=== PATIENT | male | born 1955 | race Caucasian/White ===

== ENCOUNTER 2017-10-16 01:51 | Emergency (ER) | payer BC ==
[2017-10-16 02:11] VITALS: BP 157/83
[2017-10-16] MEDS: GI Cocktail Oral Solution 30 ML PO ONE ×2 (02:16→03:06)
[2017-10-16] MEDS ORDERED: Ondansetron 4 MG Tab.DIS PO ONE (02:34)
[2017-10-16 02:42] LABS: CHLORIDE,CL 105 mmol/L (98-107); SODIUM,NA 141 mmol/L (136-145)
--- NOTE | 2017-10-16 02:43 | EDM.PDOC ---
ED HPI GENERAL MEDICAL PROBLEM - General Chief Complaint: General Stated Complaint: Indigestion Time Seen by Provider: 10/16/17 02:32 Source of Information: Reports: Patient History Limitations: Reports: No Limitations - History of Present Illness INITIAL COMMENTS - FREE TEXT/NARRATIVE: Patient drove self to ER after experiencing indigestion-like symptoms for the last 6-7 hours ( started around 7pm). Patient has had similar symptoms in past , most recently 2 weeks ago. Says this episode is worse in intensity. Point to LUQ of abdomen as site of pain. No chest pain. Pain does not radiate. Improves when he sits up straight. Worsens when lying down or laying forward. Was feeling sweaty at height of the pain. Vomiting makes it feel better significantly. Emesis is yellowish in color per nursing. No SOB/coughing/respiratory changes. No fevers/HEENT changes. Denies bowel changes/ changes. Had ribs and water for dinner History of CAD, had stent placed sometime in "the 80s", does not remember how old he was. Also insulin dependent diabetes. Abdominal Pain Score (Numeric/FACES): 7 - Related Data Allergies Allergy/AdvReac Type Severity Reaction Status Date / Time aspirin Allergy Bleeding Verified 10/16/17 01:53 Penicillins Allergy unknown Verified 10/16/17 01:53 Home Meds: Home Meds Insulin Glarg,Human.Rec.Analog [LantUS Solostar] 26 units SUBCUT BEDTIME [History] Lisinopril 0.25 tab PO DAILY 02/20/15 [History] Metoprolol Tartrate [Lopressor] 1 tab PO DAILY 02/20/15 [History] metFORMIN [Glucophage] 1,000 mg PO BID 02/20/15 [History] atorvaSTATin [Lipitor] 10 mg PO BEDTIME 02/21/15 [History] Ezetimibe 10 mg PO DAILY 10/16/17 [History] Furosemide [Lasix] 20 mg PO DAILY 10/16/17 [History] Saxagliptin HCl [Onglyza] 5 mg PO DAILY 10/16/17 [History] Past Medical History Other Musculoskeletal History: Right knee pain, right upper thigh mass - Past Surgical History Other Cardiovascular Surgeries/Procedures: Heart attack with stent placement Social & Family History - Tobacco Use Smoking Status *Q: Never Smoker Second Hand Smoke Exposure: No - Caffeine Use Caffeine Use: Reports: None - Recreational Drug Use Recreational Drug Use: No ED ROS GENERAL - Review of Systems Review Of Systems: See Below Constitutional: Reports: Diaphoresis, Decreased Appetite. Denies: Fever, Chills , Weakness, Fatigue, Weight Loss, Weight Gain HEENT: Reports: No Symptoms Respiratory: Reports: No Symptoms Cardiovascular: Reports: No Symptoms GI/Abdominal: Reports: Abdominal Pain, Decreased Appetite, Nausea, Vomiting. Denies: Black Stool, Bloody Stool, Constipation, Diarrhea, Difficulty Swallowing , Distension, Hematochezia : Reports: No Symptoms Musculoskeletal: Reports: No Symptoms Skin: Reports: No Symptoms Neurological: Reports: No Symptoms Psychiatric: Reports: No Symptoms ED EXAM, GENERAL - Physical Exam Exam: See Below Exam Limited By: No Limitations General Appearance: Alert, WD/WN, Anxious Eye Exam: Bilateral Eye: EOMI, PERRL Ears: Normal External Exam Nose: No: Nasal Deformity, Nasal Swelling, Nasal Drainage Throat/Mouth: Normal Inspection, Normal Lips, Normal Voice, No Airway Compromise Head: Atraumatic, Normocephalic Neck: Normal Inspection, Supple, Non-Tender, Full Range of Motion Respiratory/Chest: No Respiratory Distress, Lungs Clear, Normal Breath Sounds, No Accessory Muscle Use, Chest Non-Tender Cardiovascular: Normal Peripheral Pulses, Regular Rate, Rhythm, No Murmur Peripheral Pulses: 2+: Radial (L), Radial (R) GI/Abdominal: Normal Bowel Sounds, Soft, No Distention, Tender (mild tenderness with palpation left upper quadrant of abdomen). No: Guarding, Rigid, Rebound (Male) Exam: Deferred Rectal (Males) Exam: Deferred Back Exam: No: CVA Tenderness (L), CVA Tenderness (R) Neurological: Alert, Oriented, CN II-XII Intact, Normal Cognition, Normal Gait, No Motor/Sensory Deficits Psychiatric: Anxious Skin Exam: Warm, Dry, Intact, Normal Color EKG INTERPRETATION EKG Date: 10/16/17 Time: 02:08 Rhythm: NSR Rate (Beats/Min): 75 Campbell: LAD-Left Campbell Deviation P-Wave: Present QRS: Other (low voltage) ST-T: Normal (No obvious acute changes suggestive of ischemia) QT: Normal Comparison: NA - No Prior EKG Course - Vital Signs Last Recorded V/S: Last Vital Signs Temp 36.7 C 10/16/17 02:10 Pulse 77 10/16/17 02:10 Resp 18 10/16/17 02:10 BP 157/83 H 10/16/17 02:10 Pulse Ox 98 10/16/17 02:10 - Orders/Labs/Meds Orders: Active Orders 24 hr Category Date Time Status EKG Documentation Completion [RC] ASDIRECTED Care 10/16/17 02:02 Active Abdomen Series w Chest 1V [CR] Stat Exams 10/16/17 02:34 Taken Saline Lock Insert [OM.PC] Routine Oth 10/16/17 02:46 Ordered Labs: Laboratory Tests 10/16/17 10/16/17 10/16/17 Range/Units 02:14 02:14 02:14 WBC 10.3 H (4.0-10.2) K/uL RBC 4.53 (4.33-5.41) M/uL Hgb 13.5 (13.1-16.8) g/dL Hct 40.4 (39.0-49.0) % MCV 89.2 (84.0-98.0) fL MCH 29.8 (28.2-33.3) pg MCHC 33.4 (31.7-36.0) g/dL RDW 13.5 (11.2-14.1) % Plt Count 183 (150-350) K/uL Neut % (Auto) 88.9 H (45.0-80.0) % Lymph % (Auto) 5.9 L (10.0-50.0) % [place] % (Auto) 4.9 (2.0-14.0) % Eos % (Auto) 0.1 (0.0-5.0) % Baso % (Auto) 0.2 (0.0-2.0) % Neut # (Auto) 9.19 H (1.40-7.00) K/uL Lymph # (Auto) 0.61 (0.50-3.50) K/uL [place] # (Auto) 0.51 (0.00-1.00) K/uL Eos # (Auto) 0.01 (0.00-0.50) K/uL Baso # (Auto) 0.02 (0.00-0.20) K/uL Sodium 141 (136-145) mmol/L Potassium 3.9 (3.5-5.1) mmol/L Chloride 105 (98-107) mmol/L Carbon Dioxide 26.4 (21.0-32.0) mmol/L BUN 20 H (7-18) mg/dL Creatinine 1.14 (0.51-1.17) mg/dL Est Cr Clr Drug Dosing 54.81 mL/min Estimated GFR (MDRD) > 60 mL/min Glucose 196 H (74-106) mg/dL Calcium 9.1 (8.5-10.1) mg/dL Total Bilirubin 0.7 (0.2-1.0) mg/dL AST 59 H (15-37) U/L ALT 74 (12-78) U/L Alkaline Phosphatase 95 (46-116) IU/L CK-MB (CK-2) 2.30 (0.00-3.60) ng/mL Troponin I 0.000 (0.000-0.056) ng/mL Total Protein 7.3 (6.4-8.2) g/dL Albumin 3.8 (3.4-5.0) g/dL Amylase 50 (25-115) U/L Lipase 155 (73-393) U/L Meds: Medications Discontinued Medications Generic Name Dose Route Start Last Admin Trade Name Doeq PRN Reason Stop Dose Admin Al Hydroxide/Mg Hydroxide 30 ml 10/16/17 02:02 10/16/17 03:06 Gi Cocktail PO 10/16/17 02:03 Not Given ONETIME ONE Al Hydroxide/Mg Hydroxide Confirm 10/16/17 03:02 10/16/17 03:06 Gi Cocktail Administered 10/16/17 03:03 30 ml Dose Administration 30 ml .ROUTE .STK-MED ONE Famotidine 20 mg 10/16/17 03:14 10/16/17 03:19 Pepcid PO 10/16/17 03:15 20 mg ONETIME ONE Administration Ondansetron HCl 4 mg 10/16/17 02:34 10/16/17 02:39 Zofran Odt PO 10/16/17 02:35 4 mg ONETIME ONE Administration Pantoprazole Sodium 40 mg 10/16/17 02:46 10/16/17 03:05 Protonix Iv IVPUSH 10/16/17 02:47 40 mg ONETIME ONE Administration Sodium Chloride 10 ml 10/16/17 02:46 Saline Flush FLUSH ASDIRECTED PRN Keep Vein Open - Radiology Interpretation Free Text/Narrative:: Hiatal hernia noted on chest film. Scoliosis. No infiltrate identified. Moderate stool noted in abdomen. Radiology noted 1.2cm calcific radiopacity projecting left lateral to L3-4 intervertebral disc space. Could represent a ureteral calculus. May need retroperitoneal US to formally rule out hydronephrosis secondary to calculus if present. - Re-Assessments/Exams Free Text/Narrative Re-Assessment/Exam: 10/16/17 03:48 Patient unable to drink first GI cocktail as it caused emesis. Zofran given and allowed to have time to take effect. Second attempt at GI cocktail made, Pepcid given. Patient allowed to rest and be observed. Suspect GI cause to patient's complaint. Has large hiatal hernia as well as excess intraabdominal fat. Spent significant amount of time discussing dietary triggers of GERD/stomach upset. Recommend avoiding processed foods as well as foods often linked to GERD. As this involves cutting down on sugary/carb containing foods, patient was warned to monitor blood sugars closely as insulin needs should fall if he is compliant with dietary changes. Recommended to follow up with [facility]. May need new stress test as it has been a number of years since the previous test. Stu's symptoms do not appear to be cardiac in nature however at this time. Troponin and CKMB negative. No acute changes on EKG. No chest pain. [facility] will also need to be aware of dietary changes should patient follow through on this and assist him in adjusting insulin needs. He is to also cut out his diet sodas. Free Text/Narrative Re-Assessment/Exam: Patient was feeling much better at time of discharge. Pain improved to a "2". Requested to go home. Departure - Departure Time of Disposition: 04:00 Disposition: Home, Self-Care 01 Condition: Good Clinical Impression: Hiatal hernia, Abdominal pain, left upper quadrant - Discharge Information Instructions: Hiatal Hernia, Gastroesophageal Reflux Disease, Adult, Easy-to- Read Referrals: Albertina Collier NP [Primary Care Provider] - Forms: ED Department Discharge Additional Instructions: Highly recommend dietary changes as discussed. Follow up with [facility]. They will need to help you decrease your insulin requirements if you are following the recommended dietary changes. If you cut your processed food and carb intake without changing insulin dosage, then you can experience low blood sugar which can be dangerous if it gets too low. You can pear picker Zantac or Pepcid at the store and use it as the package directs to help avoid heartburn for now while you make the diet transition. Follow up otherwise as needed if you have problems/worsening issues. - My Orders Last 24 Hours: My Active Orders 10/16/17 02:02 EKG Documentation Completion [RC] ASDIRECTED 10/16/17 02:34 Abdomen Series w Chest 1V [CR] Stat 10/16/17 02:46 Saline Lock Insert [OM.PC] Routine - Assessment/Plan Last 24 Hours: My Active Orders 10/16/17 02:02 EKG Documentation Completion [RC] ASDIRECTED 10/16/17 02:34 Abdomen Series w Chest 1V [CR] Stat 10/16/17 02:46 Saline Lock Insert [OM.PC] Routine
[2017-10-16] MEDS ORDERED: Sodium Chloride 0.9% 10 ML Syringe FLUSH PRN (02:46)
[2017-10-16] MEDS ORDERED: Pantoprazole 40 MG Vial IVPUSH ONE (02:46)
[2017-10-16] MEDS ORDERED: GI Cocktail Oral Solution 30 ML ONE (03:02)
[2017-10-16] MEDS ORDERED: Famotidine 20 MG Tab PO ONE (03:14)
== END 2017-10-16 04:15 | disposition home or self-care (01) ==
LOC: LL.ED 01:51
DX: K44.9 Diaphragmatic hernia without obstruction or gangrene (principal); Z88.6 Allergy status to analgesic agent; Z88.0 Allergy status to penicillin; Z79.4 Long term (current) use of insulin; Z79.899 Other long term (current) drug therapy
CPT/HCPCS: 36415; 74022; 80053; 82150; 82553; 83690; 84484; 85025; 93005; 99284; A9270; C9113

== ENCOUNTER 2017-10-19 18:23 | Emergency (ER) | payer BC ==
[2017-10-19] MEDS ORDERED: Pantoprazole 40 MG Vial IVPUSH ONE (18:45)
[2017-10-19] MEDS ORDERED: Famotidine 20 MG/2 ML SDV IVPUSH ONE (18:45)
[2017-10-19] MEDS ORDERED: Ondansetron 4 MG/2 ML SDV IVPUSH ONE ×2 (18:45→19:56)
[2017-10-19] MEDS ORDERED: Lactated Ringers 1,000 ML IV ONE (18:45)
--- NOTE | 2017-10-19 18:45 | EDM.PDOC ---
ED HPI GENERAL MEDICAL PROBLEM - General Chief Complaint: General Stated Complaint: LLQ ABDOMINAL PAIN Time Seen by Provider: 10/19/17 18:40 Source of Information: Reports: Patient, Old Records ([facility] chart/EMR) History Limitations: Reports: No Limitations - History of Present Illness INITIAL COMMENTS - FREE TEXT/NARRATIVE: The patient drove himself to the emergency room via private automobile for evaluation of progressive recurrent left lower quadrant abdominal cramping associated with nausea and 2 episodes of emesis earlier today. Symptoms began at about 20:00 hours on 10/15 with emergency room evaluation in this facility on 10/16 with hiatal hernia and possible left-sided urolithiasis diagnosed at that time. He does state that his symptoms during the last couple of days have not been similar to his previous right-sided urolithiasis with no current colic type symptoms, gross hematuria, or other UTI symptoms. He did have a good normal bowel movement at about 13:00 hours today with a small bowel movement at 15:00 hours. He denies any anorexia, although he has not eaten very much today. Symptoms have been refractory to OTC Pepcid therapy. No recent history of other abdominal pain, heartburn, diarrhea, melena, gross hematochezia, or any food intolerance, including fatty foods, etc.. The patient denies any chest pain/ pressure, heart flutter, dizziness, orthostasis, orthopnea, diaphoresis, paresthesias, recent decreased exercise tolerance, or any other anginal-type symptoms. The patient also denies any recent fever, cough, wheezing, dyspnea, etc.. Onset: Gradual Onset Date: 10/15/17 Onset Time: 20:00 Duration: Getting Worse, Intermittent Location: Reports: Abdomen. Denies: Head, Face, Neck, Chest, Back, Pelvis, Upper Extremity, Left, Upper Extremity, Right, Radiates to Quality: Reports: Ache, Burning Severity: Severe Improves with: Reports: None Worsens with: Reports: None Context: Reports: Other (As above) Associated Symptoms: Reports: Nausea/Vomiting. 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) (Pepcid as above) Left Lower Abdominal Pain Score (Numeric/FACES): 8 Left Lower Abdomen Pain Score (Numeric/FACES): 8 - Related Data Allergies Allergy/AdvReac Type Severity Reaction Status Date / Time aspirin Allergy Bleeding Verified 10/19/17 18:25 Penicillins Allergy Swelling Verified 10/19/17 18:25 Home Meds: Home Meds Insulin Glarg,Human.Rec.Analog [LantUS Solostar] 26 units SUBCUT BEDTIME [History] Lisinopril 0.25 tab PO DAILY 02/20/15 [History] Metoprolol Tartrate [Lopressor] 1 tab PO DAILY 02/20/15 [History] metFORMIN [Glucophage] 1,000 mg PO BID 02/20/15 [History] atorvaSTATin [Lipitor] 10 mg PO BEDTIME 02/21/15 [History] Ezetimibe 10 mg PO DAILY 10/16/17 [History] Furosemide [Lasix] 20 mg PO DAILY 10/16/17 [History] Saxagliptin HCl [Onglyza] 5 mg PO DAILY 10/16/17 [History] Famotidine [Pepcid] 20 mg PO DAILY 10/19/17 [History] Tamsulosin [Tamsulosin 24 Hr] 0.4 mg PO BEDTIME #7 cap.er 10/19/17 [Rx] Past Medical History HEENT History: Reports: Hard of Hearing, Impaired Vision, Other (See Below). Denies: Allergic Rhinitis, Cataract, Glaucoma, Macular Degeneration Other HEENT History: Right sided deafness with left hearing aid. He wears glasses. No history of diabetic retinopathy. Cardiovascular History: Reports: Arrhythmia, CAD, High Cholesterol, Hypertension , [place], PTCA, Stents, Other (See Below). Denies: Afib, Aneurysm, Blood Clots/VTE/ DVT, Heart Failure, Heart Murmur, Pacemaker, PVD, Syncope Other Cardiovascular History: History of [place] at age 41 in 1996 with stent placement as below. Incomplete right bundle branch block and short NC interval by EKG on 10/16/17. Respiratory History: Reports: None, Intubation, Previous. Denies: Asthma, COPD , Intubation, Difficult, PE, Pneumothorax, Pulmonary Fibrosis, Sleep Apnea, TB Gastrointestinal History: Reports: Cholelithiasis, GERD, Hepatitis, Hiatal Hernia, Other (See Below). Denies: Celiac Disease, Chronic Constipation, Chronic Diarrhea, Colon Polyp, Diverticulosis, Fecal Incontinence, Gastritis, GI Bleed, Inflammatory Bowel Disease, Irritable Bowel Syndrome, Jaundice, Pancreatitis, PUD Other Gastrointestinal History: LFTs elevation secondary to fatty liver. Chronic hepatitis C since about 1983 with no treatment to this point.. Genitourinary History: Reports: BPH, Renal Calculus, Other (See Below). Denies : Acute Renal Failure, Chronic Renal Insuffiency, Diabetic Nephropathy, Retention, Urinary, STD, Urinary Incontinence, UTI, Recurrent Other Genitourinary History: Right-sided urolithiasis in the early with spontaneous passage. Musculoskeletal History: Reports: Arthritis, Back Pain, Chronic, Fracture, Neck Pain, Chronic, Osteoarthritis, Osteoporosis. Denies: Amputation, Gout, RA, SLE Other Musculoskeletal History: Severe scoliosis with chronic back pain. In addition severe coxarthrosis. Previous partial right rotator cuff tear in 2014. Left femoral fracture in about 1996. Neurological History: Denies: Alzheimers Disease, Cerebral Aneurysms, Concussion , CVA, Headaches, Chronic, Head Trauma, Migraines, MS, Neuropathy, Diabetic, Neuropathy, Peripheral, Parkinson's, Seizure, TIA Psychiatric History: Reports: None. Denies: Abuse, Victim of, ADD, ADHD, Addiction, Anxiety, Depression, Psych Hospitalization(s), PTSD, Suicide Attempt , Suicidal Ideation Endocrine/Metabolic History: Reports: Diabetes, Type II, IDDM, Obesity/BMI 30+, Osteopenia, Osteoporosis, Other (See Below). Denies: Diabetes, Type I, Diabetes Mellitus, Type 3c, Hypothyroidism Other Endocrine/Metabolic History: Hypogonadism. Hematologic History: Reports: None. Denies: Anemia, Blood Transfusion(s), Iron Deficiency Immunologic History: Reports: None. Denies: AIDS, HIV, SLE Oncologic (Cancer) History: Reports: None. Denies: Basal Cell Carcinoma, Colon , Hodgkin's Lymphoma, Leukemia, Lymphoma, Malignant Melanoma, Non-Hodgkin's Lymphoma, Prostate, Squamous Cell Carcinoma Dermatologic History: Reports: Venous Stasis Dermatitis, Other (See Below). Denies: Eczema, Psoriasis Other Dermatologic History: Severe venous stasis dermatitis of the right leg - Infectious Disease History Infectious Disease History: Reports: Chicken Pox, Hepatitis C, Mumps, Other ( See Below). Denies: C-Difficile, Measles, Meningitis, Mononucleosis, MRSA, Pertussis (Whooping Cough), Rheumatic Fever, Rubella, Scarlet Fever, Shingles, TB, VRE Other Infectious Disease History: Hepatitis C in about 1983. - Past Surgical History Head Surgeries/Procedures: Reports: None HEENT Surgical History: Reports: Oral Surgery, Other (See Below). Denies: Adenoidectomy, Cataract Surgery, Eye Surgery, Laser Surgery, LASIK, Naso-Sinus Surgery, Tonsillectomy Other HEENT Surgeries/Procedures: Right-Sided tympanoplasty secondary to perforated TM at age 13. Multiple teeth extractions. Cardiovascular Surgical History: Reports: Coronary Artery Stent, Percutaneous Transluminal Angioplasty. Denies: Aneurysm, Carotid Endarterectomy, Coronary Artery Bypass, Varicose Other Cardiovascular Surgeries/Procedures: PTCA/stent in 1996 at age 41. Respiratory Surgical History: Reports: None. Denies: Thoracentesis GI Surgical History: Reports: Cholecystectomy, Colonoscopy, Other (See Below). Denies: Appendectomy, EGD, Hernia, Abdominal, Hernia, Inguinal, Hernia Repair/ Other, Polypectomy Other GI Surgeries/Procedures: Upper scopic cholecystectomy on 04/29/1999. Colonoscopy on 06/20/09. Male Surgical History: Reports: Circumcision, Other (See Below). Denies: TURP-Transurethral Resection of Prostate, Vasectomy Other Male Surgeries/Procedures: Circumcision as an Endocrine Surgical History: Reports: None. Denies: Thyroid Biopsy Neurological Surgical History: Reports: None. Denies: C-Spine, Discectomy, Intracranial, Laminectomy, Lumbar Spine, Sacral Spine, Spinal Fusion, Thoracic Spine, Vertebroplasty Musculoskeletal Surgical History: Reports: Hip Replacement, Joint Replacement, Knee Replacement, Shoulder Surgery, Other (See Below). Denies: Carpal Tunnel, Ganglion Cyst, ORIF Other Musculoskeletal Surgeries/Procedures:: Right hip TEP in 2016. Right total knee arthroplasty in late 2014. Right shoulder arthroplasty in about 2014. Oncologic Surgical History: Reports: None Dermatological Surgical History: Reports: Other (See Below) Other Dermatological Surgeries/Procedures: Excision of lipoma from the right thigh on 02/21/15. - Past Imaging History Past Imaging History: Reports: Angiography (1996), CAT Scan (CT of the chest on 07/12/09.), DEXA Scan (05/27/15), MRI (MRI of the right shoulder on 08/20/14.), Ultrasound (Gallbladder ultrasound on 08/29/10. Soft tissue ultrasound of the right thigh on 01/18/15.), Venous Doppler (Right leg on 05/30/15) Social & Family History - Tobacco Use Smoking Status *Q: Never Smoker Used Tobacco, but Quit: No Smoking Cessation Information Provided To Patient: No Second Hand Smoke Exposure: No Second Hand Smoke Education Provided: No - Caffeine Use Caffeine Use: Reports: Tea (1 bottle every other week). Denies: Coffee, Energy Drinks, Soda - Alcohol Use Alcohol Use History: Yes Days Per Week of Alcohol Use: 0 Number of Drinks Per Day: 1 Number of Drinks Per Day Comment: Usually a glass of beer or wine for holidays. No previous DWIs, problems with alcohol abuse, etc. Total Drinks Per Week: 0 Alcohol Use in Last Twelve Months: Yes Alcohol Use Frequency: Rarely - Recreational Drug Use Recreational Drug Use: No Drug Use in Last 12 Months: No Recreational Drug Type: Denies: Amphetamines (Speed), Cocaine, Heroin, Inhalants (Glues, Solvents, Aerosols), LSD (Acid), Marijuana/Hashish, Methamphetamine, Morphine, Oxycodone - Living Situation & Occupation Living situation: Reports: ( in 1982 with currently living in a care center. No Children) Occupation: Disabled (Retired and disability secondary to his osteoarthritis in 2014) ED ROS GENERAL - Review of Systems Review Of Systems: See Below ED EXAM, GENERAL - Physical Exam Exam: See Below Exam Limited By: No Limitations General Appearance: Alert, WD/WN, No Apparent Distress Eye Exam: Bilateral Eye: EOMI, Normal Inspection (No nystagmus. Patient wearing glasses), PERRL Ears: Normal External Exam, Normal Canal (Moderate cerumen in the right EAC), Normal TMs, Hearing Loss (Deaf in the right ear. Moderate left-sided hearing loss despite hearing aid.) Nose: Normal Inspection, Normal Mucosa, No Blood Throat/Mouth: Normal Inspection, Normal Lips, Normal Teeth (Multiple missing teeth), Normal Gums, Normal Oropharynx, Normal Voice, No Airway Compromise. No : Dysphagia, Perioral Cyanosis Head: Atraumatic, Normocephalic. No: Facial Swelling, Facial Tenderness, Sinus Tenderness Neck: Normal Inspection, Supple, Non-Tender, Full Range of Motion. No: Carotid Bruit, Lymphadenopathy (L), Lymphadenopathy (R), Thyromegaly Respiratory/Chest: No Respiratory Distress, Lungs Clear, Normal Breath Sounds, No Accessory Muscle Use, Chest Non-Tender. No: Pleural Rub, Retractions Cardiovascular: Normal Peripheral Pulses, Regular Rate, Rhythm, No Edema, No Gallop, No JVD, No Murmur, No Rub. No: Gallop/S3, Gallop/S4, Friction Rub Peripheral Pulses: 2+: Brachial (L), Brachial (R), Dorsalis Pedis (L), Dorsalis Pedis (R) GI/Abdominal: Normal Bowel Sounds, No Organomegaly, No Distention, No Abnormal Bruit, No Mass, Pelvis Stable, Tender (Mild left lower quadrant palpation pain) . No: Guarding, Rebound (Male) Exam: Deferred Rectal (Males) Exam: Normal Rectal Tone, BPH (Mild), Heme - Stool, Hemorrhoids ( Grade 2 internal/external). No: Fecal Impaction, Rectal Fissure, Tenderness ( No Cheo space tenderness) Back Exam: Decreased Range of Motion (Secondary to moderate to severe scoliosis) . No: CVA Tenderness (L), CVA Tenderness (R), Muscle Spasm Extremities: Normal Range of Motion, Non-Tender, Normal Capillary Refill, Pedal Edema (+1 bilateral pedal/pretibial edema) is in left with moderate to severe venous stasis dermatitis in the right anterior tibial region). No: Jf's Sign Neurological: Alert, Oriented, CN II-XII Intact, Normal Cognition, Normal Gait, Normal Reflexes (Negative Babinski's), No Motor/Sensory Deficits Psychiatric: Normal Affect, Normal Mood Skin Exam: Warm, Dry, Intact, Other (Venous stasis dermatitis as above). No: Diaphoretic, Erythema, Lymphangitis, Wound/Incision Lymphatic: No Adenopathy Course - Vital Signs Last Recorded V/S: Last Vital Signs Temp 36.5 C 10/19/17 18:25 Pulse 68 10/19/17 19:47 Resp 17 10/19/17 19:47 BP 144/73 H 10/19/17 19:47 Pulse Ox 100 10/19/17 18:25 Vital Signs - 24 hr 10/19/17 10/19/17 18:25 19:47 Temperature [ 36.5 C Temporal] Pulse, 73 68 Peripheral [ Pulse Oximetry] Respiratory 14 17 Rate Blood Pressure 134/73 144/73 H [Right Upper Arm] O2 Sat by Pulse 100 Oximetry - Orders/Labs/Meds Orders: Active Orders 24 hr Category Date Time Status Peripheral IV Care [RC] . DIRECTED Care 10/19/17 18:46 Active Nothing Per Oral Diet [DIET] Diet 10/19/17 Breakfast Active Abdomen Pelvis w Cont [CT] Stat Exams 10/19/17 19:22 Taken Abdomen Series w Chest 1V [CR] Stat Exams 10/19/17 18:46 Taken CULTURE URINE [RM] Stat Lab 10/19/17 20:50 Ordered OCCULT BLOOD DIAGNOSTIC [OP] Stat Lab 10/19/17 19:20 Ordered UA W/MICROSCOPIC [URIN] Stat Lab 10/19/17 20:50 Ordered Sodium Chloride 0.9% [Saline Flush] Med 10/19/17 18:45 Active 10 ml FLUSH ASDIRECTED PRN Obtain Past Medical Record [OM.PC] Urgent Oth 10/19/17 18:46 Active Peripheral IV Insertion Adult [OM.PC] Stat Oth 10/19/17 18:46 Ordered Resuscitation Status Stat Resus Stat 10/19/17 18:45 Ordered Medication Orders Sodium Chloride (Saline Flush) 10 ml FLUSH ASDIRECTED PRN PRN Reason: Keep Vein Open Last Admin: 10/19/17 22:53 Dose: 10 ml Admin: 10/19/17 20:28 Dose: 10 ml Admin: 10/19/17 19:58 Dose: 10 ml Admin: 10/19/17 18:57 Dose: 10 ml Labs: Laboratory Tests 10/19/17 10/19/17 10/19/17 Range/Units 18:47 18:47 18:47 WBC 10.0 (4.0-10.2) K/uL RBC 4.81 (4.33-5.41) M/uL Hgb 14.2 (13.1-16.8) g/dL Hct 42.7 (39.0-49.0) % MCV 88.8 (84.0-98.0) fL MCH 29.5 (28.2-33.3) pg MCHC 33.3 (31.7-36.0) g/dL RDW 13.5 (11.2-14.1) % Plt Count 197 (150-350) K/uL Neut % (Auto) 89.2 H (45.0-80.0) % Lymph % (Auto) 6.2 L (10.0-50.0) % [place] % (Auto) 4.5 (2.0-14.0) % Eos % (Auto) 0.0 (0.0-5.0) % Baso % (Auto) 0.1 (0.0-2.0) % Neut # (Auto) 8.96 H (1.40-7.00) K/uL Lymph # (Auto) 0.62 (0.50-3.50) K/uL [place] # (Auto) 0.45 (0.00-1.00) K/uL Eos # (Auto) 0.00 (0.00-0.50) K/uL Baso # (Auto) 0.01 (0.00-0.20) K/uL PT 11.6 (9.8-11.7) SEC INR 1.1 APTT 25.4 (22.1-29.8) SEC Sodium (136-145) mmol/L Potassium (3.5-5.1) mmol/L Chloride (98-107) mmol/L Carbon Dioxide (21.0-32.0) mmol/L BUN (7-18) mg/dL Creatinine (0.51-1.17) mg/dL Est Cr Clr Drug Dosing Estimated GFR (MDRD) mL/min Glucose (74-106) mg/dL Lactic Acid (0.4-2.0) mmol/L Uric Acid (2.6-7.2) mg/dL Calcium (8.5-10.1) mg/dL Magnesium (1.8-2.4) mg/dL Total Bilirubin (0.2-1.0) mg/dL AST (15-37) U/L ALT (12-78) U/L Alkaline Phosphatase (46-116) IU/L Total Protein (6.4-8.2) g/dL Albumin (3.4-5.0) g/dL Amylase 37 (25-115) U/L Lipase (73-393) U/L Specimen Type Urine Color Urine Appearance Urine pH (5.0-9.0) Ur Specific [place] (1.005-1.030) Urine Protein (NEGATIVE) mg/dL Urine Glucose (UA) (NEGATIVE) mg/dL Urine Ketones (NEGATIVE) mg/dL Urine Occult Blood (NEGATIVE) Urine Nitrite (NEGATIVE) Urine Bilirubin (NEGATIVE) Urine Urobilinogen (0.2-1.0) E.U./dL Ur Leukocyte Esterase (NEGATIVE) Urine RBC /HPF Urine WBC /HPF Ur Epithelial Cells /LPF Urine Bacteria (NONE TO FEW) /HPF 10/19/17 10/19/17 10/19/17 Range/Units 18:47 18:47 20:50 WBC (4.0-10.2) K/uL RBC (4.33-5.41) M/uL Hgb (13.1-16.8) g/dL Hct (39.0-49.0) % MCV (84.0-98.0) fL MCH (28.2-33.3) pg MCHC (31.7-36.0) g/dL RDW (11.2-14.1) % Plt Count (150-350) K/uL Neut % (Auto) (45.0-80.0) % Lymph % (Auto) (10.0-50.0) % [place] % (Auto) (2.0-14.0) % Eos % (Auto) (0.0-5.0) % Baso % (Auto) (0.0-2.0) % Neut # (Auto) (1.40-7.00) K/uL Lymph # (Auto) (0.50-3.50) K/uL [place] # (Auto) (0.00-1.00) K/uL Eos # (Auto) (0.00-0.50) K/uL Baso # (Auto) (0.00-0.20) K/uL PT (9.8-11.7) SEC INR APTT (22.1-29.8) SEC Sodium 140 (136-145) mmol/L Potassium 4.1 (3.5-5.1) mmol/L Chloride 101 (98-107) mmol/L Carbon Dioxide 24.1 (21.0-32.0) mmol/L BUN 30 H (7-18) mg/dL Creatinine 1.18 H (0.51-1.17) mg/dL Est Cr Clr Drug Dosing TNP Estimated GFR (MDRD) > 60 mL/min Glucose 125 H (74-106) mg/dL Lactic Acid 1.6 (0.4-2.0) mmol/L Uric Acid 10.1 H (2.6-7.2) mg/dL Calcium 9.1 (8.5-10.1) mg/dL Magnesium 1.5 L (1.8-2.4) mg/dL Total Bilirubin 1.0 (0.2-1.0) mg/dL AST 58 H (15-37) U/L ALT 64 (12-78) U/L Alkaline Phosphatase 110 (46-116) IU/L Total Protein 7.9 (6.4-8.2) g/dL Albumin 3.9 (3.4-5.0) g/dL Amylase (25-115) U/L Lipase 125 (73-393) U/L Specimen Type Urinvoid Urine Color Yellow Urine Appearance Clear Urine pH 5.0 (5.0-9.0) Ur Specific [place] 1.020 (1.005-1.030) Urine Protein Trace H (NEGATIVE) mg/dL Urine Glucose (UA) Negative (NEGATIVE) mg/dL Urine Ketones 80 H (NEGATIVE) mg/dL Urine Occult Blood Moderate H (NEGATIVE) Urine Nitrite Negative (NEGATIVE) Urine Bilirubin Small H (NEGATIVE) Urine Urobilinogen 0.2 (0.2-1.0) E.U./dL Ur Leukocyte Esterase Negative (NEGATIVE) Urine RBC 5-10 H /HPF Urine WBC 0-5 /HPF Ur Epithelial Cells Many H /LPF Urine Bacteria Few (NONE TO FEW) /HPF Urine specimen set up for culture and sensitivity Microbiology 10/19/17 19:20 Stool Occult Blood (RAPHAEL) - Final Stool / Feces NEGATIVE OCCULT BLOOD Meds: Medications Generic Name Dose Route Start Last Admin Trade Name Freq PRN Reason Stop Dose Admin Sodium Chloride 10 ml 10/19/17 18:45 10/19/17 22:53 Saline Flush FLUSH 10 ml ASDIRECTED PRN Administration Keep Vein Open Discontinued Medications Generic Name Dose Route Start Last Admin Trade Name Freq PRN Reason Stop Dose Admin Famotidine 40 mg 10/19/17 18:45 10/19/17 19:03 Pepcid IVPUSH 10/19/17 18:46 40 mg ONETIME ONE Administration Lactated Ringer's 1,000 mls @ 999 mls/hr 10/19/17 18:45 10/19/17 19:14 Ringers, Lactated IV 10/19/17 19:45 999 mls/hr .BOLUS ONE Administration Iopamidol 100 ml 10/19/17 19:50 10/19/17 21:03 Isovue-300 (61%) IVPUSH 10/19/17 19:51 100 ml ONETIME ONE Administration Ketorolac Tromethamine 30 mg 10/19/17 22:40 10/19/17 22:52 Toradol IVPUSH 10/19/17 22:41 30 mg ONETIME ONE Administration Ondansetron HCl 4 mg 10/19/17 18:45 10/19/17 18:56 Zofran IVPUSH 10/19/17 18:46 4 mg ONETIME ONE Administration Ondansetron HCl 4 mg 10/19/17 19:56 10/19/17 19:58 Zofran IVPUSH 10/19/17 19:57 4 mg ONETIME ONE Administration Pantoprazole Sodium 40 mg 10/19/17 18:45 10/19/17 18:59 Protonix Iv IVPUSH 10/19/17 18:46 40 mg ONETIME ONE Administration Tamsulosin HCl 0.4 mg 10/19/17 22:40 10/19/17 22:52 Flomax PO 10/19/17 22:41 0.4 mg ONETIME ONE Administration - Radiology Interpretation Free Text/Narrative:: Acute abdominal x-ray shows moderate to severe scoliosis and osteoarthritic changes with status post right hip TEP and laparoscopic cholecystectomy. Moderate amounts of diffuse stool with nonspecific bowel gaseous pattern and no evidence of ileus, obstruction, free air, CHF, cardiomegaly, pulmonary infiltrates, pneumothorax, etc. Verbal telephone report not received from [facility] as requested. Faxed radiological report of CT scan of the abdomen and pelvis with oral and IV contrast indicates left sided 10 mm proximal ureteropelvic calcification with secondary hydronephrosis. Additional occasional diverticuli with no evidence of diverticulitis, hiatal hernia, and fatty liver were noted Departure - Departure Time of Disposition: 23:30 Disposition: Home, Self-Care 01 Condition: Good Clinical Impression: Peptic reflux disease, IDDM (insulin dependent diabetes mellitus), Hyperuricemia, Renal insufficiency, Hypomagnesemia, LFT elevation Abdominal pain Qualifiers: Abdominal location: left lower quadrant Qualified Code(s): R10.32 - Left lower quadrant pain Urolithiasis Qualifiers: Urinary calculus location: upper urinary tract Qualified Code(s): N20.9 - Urinary calculus, unspecified Coronary artery disease Qualifiers: Coronary Disease-Associated Artery/Lesion type: [place] artery [place] vs. transplanted heart: [place] heart Associated angina: without angina Qualified Code(s): I25.10 - Atherosclerotic heart disease of [place] coronary artery without angina pectoris Hyperlipidemia Qualifiers: Hyperlipidemia type: mixed hyperlipidemia Qualified Code(s): E78.2 - Mixed hyperlipidemia - Discharge Information Prescriptions: Tamsulosin [Tamsulosin 24 Hr] 0.4 mg PO BEDTIME #7 cap.er Instructions: Low-Purine Eating Plan, Gout, [id number], Kidney Stones, Easy- to-Read Referrals: Albertina Collier NP [Primary Care Provider] - Forms: ED Department Discharge Additional Instructions: 1. Follow-up with your regular provider, GHANSHYAM Lizama, from [facility] in [place], as scheduled tomorrow. Bring copy of today's discharge instructions with you to that visit. 2. [place] diet including encouragement of oral fluids such as sports drinks, etc. for 24-48 hours as directed. Advance to previous heart healthy, diabetic diet with additional gout diet as tolerated thereafter. 3. Improve compliance of your home blood sugar checks to 2 times a day as previously directed. 4. Hold metformin/Glucophage for 2 days as directed secondary to your CT scan today. 5. Discuss possible treatment for your hepatitis C with your regular provider once current symptoms have improved. 6. Tylenol 650 mg by mouth every 4 hours and/or OTC ibuprofen 2-3 tabs by mouth every 6 hours with food as directed./needed. Next dose of ibuprofen in 6 hours as needed secondary to medications given in the emergency room. 7. Strain all urine and bring stone to your regular provider or this facility as directed for further stone analysis. 8. Your regular provider will likely cancel your ultrasound, which has been scheduled for tomorrow,. She may also recommend immediate referral to a urologist for consideration of further treatment, including possible lithotripsy , stone extraction, etc. 9. Consider repeating magnesium level and basic metabolic panel in about 1 week with possible magnesium oxide therapy at that time depending on your symptoms, etc. 10. You may discontinue Flomax once stone has passed - Problem List & Annotations (1) Urolithiasis SNOMED Code(s): 94551794, 775948835 Code(s): N20.9 - URINARY CALCULUS, UNSPECIFIED Status: Chronic Priority: Medium Current Visit: Yes Annotation/Comment:: History of distant right- sided urolithiasis as above. New large proximal left-sided kidney stone, which will likely not pass spontaneously. IV Toradol and oral Flomax therapy initiated in the emergency room. Close follow-up by her regular provider with likely urological referral for further treatment, including possible stone extraction versus lithotripsy. No evidence of UTI with urine specimen set up for culture and sensitivity. No typical colic today, however note significantly elevated uric acid level today. Dietary information provided. Stone to be collected for analysis, if passed. Ultrasound had been scheduled for tomorrow by his regular provider with some hydronephrosis noted today by CT scan. Repeat CT scan versus renal ultrasound depending on his clinical course. Qualifiers: Urinary calculus location: upper urinary tract Qualified Code(s): N20.9 - Urinary calculus, unspecified (2) Abdominal pain SNOMED Code(s): 77853995 Code(s): R10.9 - UNSPECIFIED ABDOMINAL PAIN Status: Acute Priority: High Current Visit: Yes Onset Date: ~10/15/17 Annotation/Comment:: Likely secondary to left-sided urolithiasis as above. Symptoms improved with aggressive medical therapy as above. Qualifiers: Abdominal location: left lower quadrant Qualified Code(s): R10.32 - Left lower quadrant pain (3) Coronary artery disease SNOMED Code(s): 80947712 Code(s): I25.10 - ATHSCL HEART DISEASE OF [place] CORONARY ARTERY W/O ANG PCTRS Status: Chronic Priority: Medium Current Visit: Yes Annotation/ Comment:: No chest pain or anginal type symptoms. Qualifiers: Coronary Disease-Associated Artery/Lesion type: [place] artery [place] vs. transplanted heart: [place] heart Associated angina: without angina Qualified Code(s): I25.10 - Atherosclerotic heart disease of [place] coronary artery without angina pectoris (4) Hyperlipidemia SNOMED Code(s): 98734046 Code(s): E78.5 - HYPERLIPIDEMIA, UNSPECIFIED Status: Chronic Priority: Medium Current Visit: Yes Annotation/Comment:: Currently under therapy. Qualifiers: Hyperlipidemia type: mixed hyperlipidemia Qualified Code(s): E78.2 - Mixed hyperlipidemia (5) Hyperuricemia SNOMED Code(s): 57450370 Code(s): E79.0 - HYPERURICEMIA W/O SIGNS OF INFLAM ARTHRIT AND TOPHACEOUS DIS Status: Acute Priority: Medium Current Visit: Yes Onset Date: Annotation/Comment:: Newly diagnosed with no previous history of gout despite distant urolithiasis as above. His osteoarthritis is otherwise stable. Dietary information provided. (6) Hypomagnesemia SNOMED Code(s): 031500857 Code(s): E83.42 - HYPOMAGNESEMIA Status: Acute Priority: Medium Current Visit: Yes Onset Date: 10/19/17 Annotation/Comment:: Consider initiation of magnesium oxide therapy by regular provider by regular provider as per discharge instructions. Magnesium oxide not initiated today secondary to current urolithiasis (7) IDDM (insulin dependent diabetes mellitus) SNOMED Code(s): 33441566 Code(s): E11.9 - TYPE 2 DIABETES MELLITUS WITHOUT COMPLICATIONS; Z79.4 - TANNERY GUMMER (CURRENT) USE OF INSULIN Status: Chronic Priority: Medium Current Visit: Yes Annotation/Comment:: Accu-Chek this morning of 98 mg percent. Patient was supposed to take his Accu-Cheks on a twice a day basis however has been relatively noncompliant and has been taking his blood sugars only about a couple times a month. He does agree to improve his compliance as above. He has apparently been skipping some of his insulin recently secondary to his normal blood sugars as above. He does agree to discuss this further with his regular provider at follow-up. (8) LFT elevation SNOMED Code(s): 473692210, 586090272 Code(s): R94.5 - ABNORMAL RESULTS OF LIVER FUNCTION STUDIES Status: Chronic Priority: Medium Current Visit: Yes Annotation/Comment:: History of chronic LFTs elevation likely secondary to fatty liver with additional history of chronic hepatitis C. He is considering possible new treatment for his hepatitis C with no previous treatment (9) Peptic reflux disease SNOMED Code(s): 821601854 Code(s): K21.9 - GASTRO-ESOPHAGEAL REFLUX DISEASE WITHOUT ESOPHAGITIS Status: Chronic Priority: Medium Current Visit: Yes Annotation/Comment:: Hiatal hernia by CT scan as above. High-dose IV Pepcid and IV Protonix given as GI prophylaxis, although abdominal complaints secondary to his urolithiasis as above. (10) Renal insufficiency SNOMED Code(s): 400040752, 430675844 Code(s): N28.9 - DISORDER OF KIDNEY AND URETER, UNSPECIFIED Status: Chronic Priority: Medium Current Visit: Yes Annotation/Comment:: Renal insufficiency todaymild. He will hold his metformin for 2 days secondary to his CT scan today. No previous history of significant diabetic nephropathy. (11) Diverticulosis SNOMED Code(s): 780819522 Code(s): K57.90 - DVRTCLOS OF INTEST, PART UNSP, W/O PERF OR ABSCESS W/O BLEED Status: Acute Priority: Medium Current Visit: Yes Onset Date: ~ Annotation/Comment:: Newly diagnosed today with no evidence of diverticulitis by CT scan. Consider repeating colonoscopy once his current symptoms have improved. Qualifiers: Diverticulosis site: diverticulosis of large intestine Diverticulosis bleeding: diverticulosis without bleeding Qualified Code(s): K57.30 - Diverticulosis of large intestine without perforation or abscess without bleeding - Problem List Review Problem List Initiated/Reviewed/Updated: Yes - My Orders Last 24 Hours: My Active Orders 10/19/17 18:45 Sodium Chloride 0.9% [Saline Flush] 10 ml FLUSH ASDIRECTED PRN Resuscitation Status Stat 10/19/17 18:46 Peripheral IV Care [RC] . DIRECTED Abdomen Series w Chest 1V [CR] Stat Obtain Past Medical Record [OM.PC] Urgent Peripheral IV Insertion Adult [OM.PC] Stat 10/19/17 19:20 OCCULT BLOOD DIAGNOSTIC [OP] Stat 10/19/17 19:22 Abdomen Pelvis w Cont [CT] Stat 10/19/17 20:50 CULTURE URINE [RM] Stat UA W/MICROSCOPIC [URIN] Stat 10/19/17 Breakfast Nothing Per Oral Diet [DIET] - Assessment/Plan Last 24 Hours: My Active Orders 10/19/17 18:45 Sodium Chloride 0.9% [Saline Flush] 10 ml FLUSH ASDIRECTED PRN Resuscitation Status Stat 10/19/17 18:46 Peripheral IV Care [RC] . DIRECTED Abdomen Series w Chest 1V [CR] Stat Obtain Past Medical Record [OM.PC] Urgent Peripheral IV Insertion Adult [OM.PC] Stat 10/19/17 19:20 OCCULT BLOOD DIAGNOSTIC [OP] Stat 10/19/17 19:22 Abdomen Pelvis w Cont [CT] Stat 10/19/17 20:50 CULTURE URINE [RM] Stat UA W/MICROSCOPIC [URIN] Stat 10/19/17 Breakfast Nothing Per Oral Diet [DIET] Assessment:: As above Plan: As above. Extensive precautions were given to the patient, who is in agreement with the treatment plan. See Patient Instructions for further treatment and plan.
[2017-10-19] MEDS: Sodium Chloride 0.9% 10 ML Syringe FLUSH PRN ×4 (18:57→22:53)
[2017-10-19 19:08] LABS: CHLORIDE,CL 101 mmol/L (98-107); SODIUM,NA 140 mmol/L (136-145)
[2017-10-19 19:47] VITALS: BP 144/73
[2017-10-19] MEDS ORDERED: Iopamidol 612 MG/ML 100 ML Bottle IVPUSH ONE (19:50)
[2017-10-19] MEDS ORDERED: Ketorolac 30 MG/ML SDV IVPUSH ONE (22:40)
[2017-10-19] MEDS ORDERED: Tamsulosin 0.4 MG Cap.ER PO ONE (22:40)
== END 2017-10-19 23:30 | disposition home or self-care (01) ==
LOC: LL.ED 18:23
DX: N13.2 Hydronephrosis with renal and ureteral calculous obstruction (principal); E79.0 Hyperuricemia without signs of inflammatory arthritis and tophaceous disease; K21.9 Gastro-esophageal reflux disease without esophagitis; N28.9 Disorder of kidney and ureter, unspecified; E83.42 Hypomagnesemia; E78.2 Mixed hyperlipidemia; I25.10 Atherosclerotic heart disease of native coronary artery without angina pectoris; I10 Essential (primary) hypertension; I25.2 Old myocardial infarction; E11.9 Type 2 diabetes mellitus without complications; E78.00 Pure hypercholesterolemia, unspecified; Z88.6 Allergy status to analgesic agent; Z88.0 Allergy status to penicillin; Z79.4 Long term (current) use of insulin; Z79.899 Other long term (current) drug therapy
CPT/HCPCS: 36415; 74022; 74177; 80053; 81001; 82150; 82272; 83605; 83690; 83735; 84550; 85025; 85610; 85730; 87086; 96361; 96374; 96375; 96376; 99285; A9270-GY; C9113; J1885; J2405; J7050; J7120; Q9967; S0028

== ENCOUNTER 2020-06-06 08:14 | Day surgery (SDC) | payer MEDICARE, BC ==
[2020-06-04 14:59] LABS: CORONAVIRUS COVID-19 NAA NEGATIVE (NEGATIVE)
[~2020-06-06 08:14] MED LIST: Propofol 200 MG/20 ML SDV ONE; Sodium Chloride 0.9% 10 ML Syringe FLUSH PRN
[2020-06-06] MEDS: Lactated Ringers 1,000 ML IV SCH (08:38)
[2020-06-06] MEDS ORDERED: Propofol 200 MG/20 ML SDV ONE ×2 (08:55)
--- NOTE | 2020-06-06 09:00 | PCM.PN ---
- General Info Date of Service: 06/06/20 - Review of Systems Systems Review Comment:: 64-year-old male referred for follow-up colonoscopy. He has a history of colon polyps. He denies any recent change in bowel pattern. His recent history and physical is reviewed and no significant changes are noted. He is stable to proceed with colonoscopy today. I have discussed the proposed colonoscopy with the patient. He agrees to proceed excepting risks. - Patient Data Vitals - Most Recent: Last Vital Signs Temp 97.4 F 06/06/20 08:43 Pulse 86 06/06/20 08:43 Resp 18 06/06/20 08:43 BP 138/81 06/06/20 08:43 Pulse Ox 99 06/06/20 08:43 Weight - Most Recent: 82.1 kg Lab Results Last 24 Hours: Laboratory Results - last 24 hr 06/06/20 Range/Units 08:40 POC Glucose 72 (65-110) mg/dl Med Orders - Current: Current Medications Lactated Ringer's (Ringers, Lactated) 1,000 mls @ 125 mls/hr IV ASDIRECTED SANDIE Last Admin: 06/06/20 08:38 Dose: 125 mls/hr Documented by: Sodium Chloride (Saline Flush) 10 ml FLUSH ASDIRECTED PRN PRN Reason: Keep Vein Open Discontinued Medications Propofol (Diprivan 20 Ml) Confirm Administered Dose 400 mg .ROUTE .STK-MED ONE Stop: 06/06/20 07:56 Sepsis Event Note - Focused Exam Vital Signs: Vital Signs Temp Pulse Resp BP Pulse Ox 06/06/20 08:43 97.4 F 86 18 138/81 99 - Problem List Review Problem List Initiated/Reviewed/Updated: Yes - Assessment Assessment:: History of colon polyps - Plan Plan:: Colonoscopy
--- NOTE | 2020-06-06 09:39 | PCM.OPNOTE ---
- General Post-Op/Procedure Note Date of Surgery/Procedure: 06/06/20 Operative Procedure(s): Colonoscopy to Splenic Flexure Findings: Narrowing/Acute angulation at splenic flexure area which prevented the scope from safely advancing past this point. Visualized colon appeared normal Pre Op Diagnosis: History of colon polyps Post-Op Diagnosis: Colon Stricture Anesthesia Technique: MAC Primary Surgeon: Hayder South Pathology: none EBL in mLs: 0 Complications: None Condition: Good
[2020-06-06 10:39] VITALS: BP 138/87; PULSE 83
--- NOTE | 2020-06-06 11:00 | OR ---
Date of Procedure: 06/06/2020 PREOPERATIVE DIAGNOSIS: History of colon polyps. POSTOPERATIVE DIAGNOSES: Colon stricture. OPERATION PERFORMED: Incomplete colonoscopy to splenic flexure. INDICATIONS FOR SURGERY: This 64-year-old male is seen today for surveillance colonoscopy. He has a history of colon polyps in the past. It has been several years since his last colonoscopy. He denies having any difficulty with bowel function. FINDINGS: The patient's left colon appeared normal, but in approximately the region of the splenic flexure, there appeared to be a benign area of narrowing or acute angulation, which precluded the advancement of the scope safely past this area. Despite persistent careful attempts, the scope could not safely be advanced through this region and so the more proximal colon was not able to be examined during this exam. Again, the distal aspect of the colon and even the area of the narrowing itself otherwise appeared normal with no signs of mucosal lesions or polyps. DESCRIPTION OF PROCEDURE: The patient was taken to the operating room. He was given intravenous sedation, and with him in the left lateral decubitus position, digital rectal exam was performed showing no rectal masses. The Olympus colonoscope was inserted into the rectum, retroflexed examination of the rectal canal was performed. The scope was then carefully advanced through the left side of the colon up to approximately the region of the splenic flexure. There appeared to be a region of narrowing and acute angulation in this area and careful persistent attempts were made to advance the scope past this region. A change in the patient's position was also attempted, but it was found that the scope would not safely advance past here. The scope was then slowly withdrawn re-examining the left side of the colon with no other abnormality seen. The scope was removed, and the patient was taken from the operating room in satisfactory condition. ESTIMATED BLOOD LOSS: Zero. COMPLICATIONS: None. PROGNOSIS: Good. REILLY South MD /[id number]
== END 2020-06-06 10:55 | disposition home or self-care (01) ==
LOC: LL.SDS 08:14
PROVIDERS: ATTEND Surgery
DX: K56.699 Other intestinal obstruction unspecified as to partial versus complete obstruction (principal); I10 Essential (primary) hypertension; E78.2 Mixed hyperlipidemia; I25.2 Old myocardial infarction; E11.40 Type 2 diabetes mellitus with diabetic neuropathy, unspecified; I25.10 Atherosclerotic heart disease of native coronary artery without angina pectoris; E66.9 Obesity, unspecified; Z86.010 Personal history of colon polyps; Z01.812 Encounter for preprocedural laboratory examination; Z20.822 Contact with and (suspected) exposure to COVID-19; Z79.4 Long term (current) use of insulin; Z90.49 Acquired absence of other specified parts of digestive tract; Z88.0 Allergy status to penicillin; Z98.890 Other specified postprocedural states; Z79.899 Other long term (current) drug therapy; Z68.34 Body mass index [BMI] 34.0-34.9, adult; Z88.8 Allergy status to other drugs, medicaments and biological substances
CPT/HCPCS: 00811; 82962; J2704; J7120; U0002

== ENCOUNTER 2022-01-14 09:31 | Emergency (ER) | payer MEDICARE, BC ==
[2022-01-14 09:36] VITALS: BP 143/78; PULSE 78
[2022-01-14] MEDS ORDERED: Morphine 2 MG/ML SYRINGE IM ONE (09:50)
[2022-01-14] MEDS ORDERED: Lidocaine 2% with EPINEPHrine 1:100,000 20 ML MDV INJECT ONE (10:01)
[2022-01-14] MEDS ORDERED: Diphtheria/Tetanus Toxoids,Adult (Td) 0.5 ML SDV IM ONE (10:35)
== END 2022-01-14 11:55 | disposition home or self-care (01) ==
LOC: LL.ED 09:31
DX: S01.01XA Laceration without foreign body of scalp, initial encounter (principal); S80.212A Abrasion, left knee, initial encounter; I25.10 Atherosclerotic heart disease of native coronary artery without angina pectoris; E78.00 Pure hypercholesterolemia, unspecified; I10 Essential (primary) hypertension; I25.2 Old myocardial infarction; E11.42 Type 2 diabetes mellitus with diabetic polyneuropathy; Z88.8 Allergy status to other drugs, medicaments and biological substances; Z88.0 Allergy status to penicillin; Z79.4 Long term (current) use of insulin; Z23 Encounter for immunization; Z79.899 Other long term (current) drug therapy; W18.09XA Striking against other object with subsequent fall, initial encounter; Y92.009 Unspecified place in unspecified non-institutional (private) residence as the place of occurrence of the external cause
CPT/HCPCS: 12004; 70450; 90471; 90714; 96372; 99283; 99283-25; J2270

== ENCOUNTER 2025-03-26 10:22 | Inpatient (IN) | payer BC, MEDICARE, OTHER ==
[2025-03-26 10:49] LABS: PLATELET COUNT,PLT 336 K/uL (150-350); RED BLOOD CELL COUNT 4.31 M/uL (4.33-5.41); RED CELL DISTRIBUTION WIDTH 14.2 % (11.2-14.1); WHITE BLOOD CELL COUNT,WBC 16.0 K/uL (4.0-10.2)
[2025-03-26 11:06] LABS: ALANINE AMINOTRANSFERASE,ALT 42.0 U/L (12-78); ASPARTATE AMNIOTRANSFERASE,AST 38.0 U/L (15-37); BILIRUBIN TOTAL 0.3 mg/dL (0.2-1.0); CARBON DIOXIDE,CO2 18.1 mmol/L (21.0-32.0); CHLORIDE,CL 105.0 mmol/L (98-107); EST CRCL DRUG DOSING (CG) 12.2 mL/min; GLUCOSE RANDOM 75.0 mg/dL (70-99); PROTEIN TOTAL,TP 6.8 g/dL (6.4-8.2); SODIUM,NA 142.0 mmol/L (136-145)
[2025-03-26 11:09] LABS: LACTIC ACID 3.3 mmol/L (0.4-2.0)
[2025-03-26 11:11] LABS: BLOOD UREA NITROGEN,BUN 101.0 mg/dL (7-18); POTASSIUM,K 2.9 mmol/L (3.5-5.1)
[2025-03-26 11:12] LABS: CREATININE 4.83 mg/dL (0.51-1.17); ESTIMATED GFR 12.0 mL/min (>=60)
[2025-03-26 11:28] LABS: BAND PERCENT MAN 2; LYMPHOCYTES PERCENT MAN 14; MONOCYTES PERCENT MAN 9; SEG NEUTROPHILS PERCENT MAN 75
[2025-03-26] MEDS: Potassium Bicarbonate/Cit Ac 20 MEQ Effervescent Tab PO ONE (11:40)
[2025-03-26] MEDS ORDERED: Ondansetron 4 MG Tab.DIS PO PRN (12:49)
[2025-03-26] MEDS ORDERED: 50% Dextrose in Water 50 ML Syringe IVPUSH PRN (12:56)
[2025-03-26 23:35] LABS: CARBON DIOXIDE,CO2 18.4 mmol/L (21.0-32.0); CHLORIDE,CL 107.0 mmol/L (98-107); EST CRCL DRUG DOSING (CG) 12.28 mL/min; ESTIMATED GFR 12.0 mL/min (>=60); GLUCOSE RANDOM 126.0 mg/dL (70-99); POTASSIUM,K 3.1 mmol/L (3.5-5.1); SODIUM,NA 140.0 mmol/L (136-145)
[2025-03-26 23:36] LABS: BLOOD UREA NITROGEN,BUN 102.0 mg/dL (7-18); CREATININE 4.8 mg/dL (0.51-1.17)
[2025-03-27] MEDS: Potassium Chloride 20 MEQ Tab.ER PO ONE ×2 (00:08→00:51)
[2025-03-27 08:13] LABS: CARBON DIOXIDE,CO2 16.2 mmol/L (21.0-32.0); CHLORIDE,CL 109.0 mmol/L (98-107); EST CRCL DRUG DOSING (CG) 12.46 mL/min; GLUCOSE RANDOM 101.0 mg/dL (70-99); POTASSIUM,K 3.4 mmol/L (3.5-5.1); SODIUM,NA 141.0 mmol/L (136-145)
[2025-03-27 08:15] LABS: ESTIMATED GFR 12.0 mL/min (>=60)
[2025-03-27 08:16] LABS: BLOOD UREA NITROGEN,BUN 97.0 mg/dL (7-18); CREATININE 4.73 mg/dL (0.51-1.17)
[2025-03-27] MEDS: Sodium Chloride 0.9% 10 ML Syringe FLUSH PRN (12:58)
[2025-03-27 16:34] LABS: CARBON DIOXIDE,CO2 17.5 mmol/L (21.0-32.0); CHLORIDE,CL 108.0 mmol/L (98-107); EST CRCL DRUG DOSING (CG) 12.59 mL/min; GLUCOSE RANDOM 94.0 mg/dL (70-99); POTASSIUM,K 3.7 mmol/L (3.5-5.1); SODIUM,NA 142.0 mmol/L (136-145)
[2025-03-27 16:53] LABS: BLOOD UREA NITROGEN,BUN 96.0 mg/dL (7-18); CREATININE 4.68 mg/dL (0.51-1.17); ESTIMATED GFR 13.0 mL/min (>=60)
[2025-03-27 20:58] LABS: BASOPHILS ABSOLUTE AUTO 0.01 K/uL (0.00-0.20); BASOPHILS PERCENT AUTO 0.1 % (0.0-2.0); EOSINOPHILS ABSOLUTE AUTO 0.08 K/uL (0.00-0.50); EOSINOPHILS PERCENT AUTO 0.6 % (0.0-5.0); IMMATURE GRAN ABSOLUTE AUTO 1.50 10^3/uL (0.00-0.04); IMMATURE GRAN PERCENT AUTO 10.5 % (0.0-0.4); LYMPHOCYTES ABSOLUTE AUTO 1.01 K/uL (0.50-3.50); LYMPHOCYTES PERCENT AUTO 7.1 % (10.0-50.0); MONOCYTES ABSOLUTE AUTO 0.86 K/uL (0.00-1.00); MONOCYTES PERCENT AUTO 6.0 % (2.0-14.0); NEUTROPHILS ABSOLUTE AUTO 10.77 K/uL (1.40-7.00); NEUTROPHILS PERCENT AUTO 75.7 % (45.0-80.0); PLATELET COUNT,PLT 326 K/uL (150-350); RED BLOOD CELL COUNT 4.56 M/uL (4.33-5.41); RED CELL DISTRIBUTION WIDTH 14.1 % (11.2-14.1); WHITE BLOOD CELL COUNT,WBC 14.2 K/uL (4.0-10.2)
[2025-03-27 21:28] LABS: APPEARANCE,URINE CLEAR; GLUCOSE,URINE NEGATIVE (NEGATIVE); OCCULT BLOOD,URINE SMALL (NEGATIVE)
[2025-03-27 21:51] LABS: SQUAMOUS EPITHELIAL CELLS,UR FEW /HPF (NOT SEEN)
[2025-03-28 07:59] LABS: BLOOD UREA NITROGEN,BUN 89.0 mg/dL (7-18); CARBON DIOXIDE,CO2 19.1 mmol/L (21.0-32.0); CHLORIDE,CL 112.0 mmol/L (98-107); EST CRCL DRUG DOSING (CG) 13.93 mL/min; GLUCOSE RANDOM 97.0 mg/dL (70-99); POTASSIUM,K 3.7 mmol/L (3.5-5.1); SODIUM,NA 145.0 mmol/L (136-145)
[2025-03-28 08:03] LABS: CREATININE 4.23 mg/dL (0.51-1.17); ESTIMATED GFR 14.0 mL/min (>=60)
[2025-03-29 07:38] LABS: BASOPHILS ABSOLUTE AUTO 0.01 K/uL (0.00-0.20); BASOPHILS PERCENT AUTO 0.1 % (0.0-2.0); EOSINOPHILS ABSOLUTE AUTO 0.08 K/uL (0.00-0.50); EOSINOPHILS PERCENT AUTO 0.8 % (0.0-5.0); IMMATURE GRAN ABSOLUTE AUTO 0.75 10^3/uL (0.00-0.04); IMMATURE GRAN PERCENT AUTO 7.6 % (0.0-0.4); LYMPHOCYTES ABSOLUTE AUTO 0.75 K/uL (0.50-3.50); LYMPHOCYTES PERCENT AUTO 7.6 % (10.0-50.0); MONOCYTES ABSOLUTE AUTO 0.68 K/uL (0.00-1.00); MONOCYTES PERCENT AUTO 6.9 % (2.0-14.0); NEUTROPHILS ABSOLUTE AUTO 7.55 K/uL (1.40-7.00); NEUTROPHILS PERCENT AUTO 77.0 % (45.0-80.0); PLATELET COUNT,PLT 243 K/uL (150-350); RED BLOOD CELL COUNT 3.86 M/uL (4.33-5.41); RED CELL DISTRIBUTION WIDTH 14.9 % (11.2-14.1); WHITE BLOOD CELL COUNT,WBC 9.8 K/uL (4.0-10.2)
[2025-03-29 07:43] VITALS: BP 116/65; PULSE 65
[2025-03-29 08:21] LABS: BLOOD UREA NITROGEN,BUN 68.0 mg/dL (7-18); CARBON DIOXIDE,CO2 19.4 mmol/L (21.0-32.0); CHLORIDE,CL 115.0 mmol/L (98-107); CREATININE 2.9 mg/dL (0.51-1.17); EST CRCL DRUG DOSING (CG) 20.32 mL/min; GLUCOSE RANDOM 91.0 mg/dL (70-99); PHOSPHORUS 3.7 mg/dL (2.6-4.7); POTASSIUM,K 3.1 mmol/L (3.5-5.1); SODIUM,NA 148.0 mmol/L (136-145)
[2025-03-29 08:29] LABS: ESTIMATED GFR 22.0 mL/min (>=60)
[2025-03-29] MEDS: Potassium Chloride 10 MEQ Tab.ER PO ONE (12:24)
== END 2025-03-29 13:15 | disposition home or self-care (01) | DRG 391 ==
LOC: LL.ED 10:22 → LL.MS 12:39
PROVIDERS: ADMIT Family Medicine; ATTEND Family Medicine
DX: A08.4 Viral intestinal infection, unspecified (principal); N17.0 Acute kidney failure with tubular necrosis; N17.9 Acute kidney failure, unspecified; E86.0 Dehydration; E87.6 Hypokalemia; E11.9 Type 2 diabetes mellitus without complications; W19.XXXA Unspecified fall, initial encounter; E78.00 Pure hypercholesterolemia, unspecified; I10 Essential (primary) hypertension; I25.10 Atherosclerotic heart disease of native coronary artery without angina pectoris; M19.90 Unspecified osteoarthritis, unspecified site; E66.9 Obesity, unspecified; E11.40 Type 2 diabetes mellitus with diabetic neuropathy, unspecified; F32.A Depression, unspecified; Z96.649 Presence of unspecified artificial hip joint; Z96.659 Presence of unspecified artificial knee joint; Z95.5 Presence of coronary angioplasty implant and graft; I25.2 Old myocardial infarction; Z98.890 Other specified postprocedural states; Z90.49 Acquired absence of other specified parts of digestive tract; Z88.0 Allergy status to penicillin; Z88.8 Allergy status to other drugs, medicaments and biological substances; Z79.899 Other long term (current) drug therapy; Z79.4 Long term (current) use of insulin; Z79.84 Long term (current) use of oral hypoglycemic drugs; Z68.24 Body mass index [BMI] 24.0-24.9, adult
CPT/HCPCS: 36415; 51702; 51798; 76770; 80048; 80053; 80069; 81001; 82947; 83605; 83690; 83735; 85025; 93005; 96360; 96361; 97161-GP; 97165-GO; 99284; 99285-25; A6212; A9270-GY; C1889; J7030; J7042; Q3014

== ENCOUNTER 2025-04-05 18:00 | Inpatient (IN) | payer MEDICARE ==
[2025-04-05 18:28] LABS: BASOPHILS ABSOLUTE AUTO 0.01 K/uL (0.00-0.20); BASOPHILS PERCENT AUTO 0.1 % (0.0-2.0); EOSINOPHILS ABSOLUTE AUTO 0.00 K/uL (0.00-0.50); EOSINOPHILS PERCENT AUTO 0.0 % (0.0-5.0); IMMATURE GRAN ABSOLUTE AUTO 0.07 10^3/uL (0.00-0.04); IMMATURE GRAN PERCENT AUTO 0.4 % (0.0-0.4); LYMPHOCYTES ABSOLUTE AUTO 0.32 K/uL (0.50-3.50); LYMPHOCYTES PERCENT AUTO 1.6 % (10.0-50.0); MONOCYTES ABSOLUTE AUTO 0.81 K/uL (0.00-1.00); MONOCYTES PERCENT AUTO 4.2 % (2.0-14.0); NEUTROPHILS ABSOLUTE AUTO 18.28 K/uL (1.40-7.00); NEUTROPHILS PERCENT AUTO 93.7 % (45.0-80.0); PLATELET COUNT,PLT 241 K/uL (150-350); RED BLOOD CELL COUNT 4.80 M/uL (4.33-5.41); RED CELL DISTRIBUTION WIDTH 16.1 % (11.2-14.1); WHITE BLOOD CELL COUNT,WBC 19.5 K/uL (4.0-10.2)
[2025-04-05] MEDS: Lactated Ringers 1,000 ML IV SCH (18:28)
[2025-04-05 18:49] LABS: INR 1.2 (0.9-1.1); PTT,PARTIAL THROMBOPLSTIN TIME 28.1 SEC (23.8-34.4)
[2025-04-05 18:55] LABS: APPEARANCE,URINE TURBID; GLUCOSE,URINE NEGATIVE (NEGATIVE)
[2025-04-05 18:56] LABS: LACTIC ACID 2.0 mmol/L (0.4-2.0)
[2025-04-05 18:56] LABS: OCCULT BLOOD,URINE LARGE (NEGATIVE)
[2025-04-05 19:01] LABS: ALANINE AMINOTRANSFERASE,ALT 33 U/L (12-78); ASPARTATE AMNIOTRANSFERASE,AST 43 U/L (15-37); BILIRUBIN TOTAL 1.3 mg/dL (0.2-1.0); BLOOD UREA NITROGEN,BUN 19 mg/dL (7-18); CARBON DIOXIDE,CO2 25.3 mmol/L (21.0-32.0); CHLORIDE,CL 105 mmol/L (98-107); CREATINE KINASE,CK 179 U/L (26-308); CREATININE 1.31 mg/dL (0.51-1.17); ETHANOL BLOOD MEDICAL 0.000 g/dL (0.000-0.080); GLUCOSE RANDOM 126 mg/dL (70-99); POTASSIUM,K 3.3 mmol/L (3.5-5.1); PRO B-TYPE NATRIUR PEPT,BNPPRO 3976 pg/mL (0-125); PROTEIN TOTAL,TP 7.0 g/dL (6.4-8.2); SODIUM,NA 142 mmol/L (136-145)
[2025-04-05 19:01] LABS: AMPHETAMINES SCREEN, URINE NEGATIVE (NEGATIVE); COCAINE METABOLITES,URINE NEGATIVE (NEGATIVE); EDDP,URINE SCREEN NEGATIVE (NEGATIVE); METHAMPHETAMINES SCREEN, URINE NEGATIVE (NEGATIVE); TCA SCREEN,URINE NEGATIVE (NEGATIVE); THC SCREEN,URINE 50 NG/ML NEGATIVE (NEGATIVE)
[2025-04-05 19:02] LABS: BUPRENORPHINE SCREEN,URINE NEGATIVE (NEGATIVE); OXYCODONE SCREEN,URINE NEGATIVE (NEGATIVE)
[2025-04-05 19:02] LABS: ESTIMATED GFR 58 mL/min (>=60)
[2025-04-05] MEDS: Sodium Chloride 0.9% 10 ML Syringe FLUSH PRN (19:07)
[2025-04-05] MEDS ORDERED: Magnesium Hydroxide 400 MG/5 ML Susp 30 ML Cup PO PRN (23:14)
[2025-04-06] MEDS: Magnesium Sulfate 2 GM/50 mL 2 GM in Premix Bag 1 BAG IV ONE (01:40)
[2025-04-06] MEDS: Potassium Chloride 20 MEQ Tab.ER PO ONE ×2 (02:26→04:07)
[2025-04-06 07:39] LABS: MEAN PLATELET VOLUME 9.50 fL (7.00-11.50); PLATELET COUNT,PLT 265 K/uL (150-350); RED BLOOD CELL COUNT 4.06 M/uL (4.33-5.41); RED CELL DISTRIBUTION WIDTH 16.0 % (11.2-14.1); WHITE BLOOD CELL COUNT,WBC 13.1 K/uL (4.0-10.2)
[2025-04-06 08:00] LABS: BLOOD UREA NITROGEN,BUN 17.0 mg/dL (7-18); CARBON DIOXIDE,CO2 24.8 mmol/L (21.0-32.0); CHLORIDE,CL 109.0 mmol/L (98-107); CREATININE 1.26 mg/dL (0.51-1.17); EST CRCL DRUG DOSING (CG) 46.78 mL/min; GLUCOSE RANDOM 111.0 mg/dL (70-99); POTASSIUM,K 3.1 mmol/L (3.5-5.1); SODIUM,NA 143.0 mmol/L (136-145)
[2025-04-06 08:02] LABS: ESTIMATED GFR 61.0 mL/min (>=60)
[2025-04-07 08:02] LABS: BLOOD UREA NITROGEN,BUN 11.0 mg/dL (7-18); CARBON DIOXIDE,CO2 27.3 mmol/L (21.0-32.0); CHLORIDE,CL 110.0 mmol/L (98-107); CREATININE 1.3 mg/dL (0.51-1.17); EST CRCL DRUG DOSING (CG) 45.34 mL/min; GLUCOSE RANDOM 121.0 mg/dL (70-99); POTASSIUM,K 3.9 mmol/L (3.5-5.1); SODIUM,NA 145.0 mmol/L (136-145)
[2025-04-07 08:35] LABS: ESTIMATED GFR 59.0 mL/min (>=60)
[2025-04-07] MEDS: Furosemide 40 MG/4 ML VIAL IVPUSH ONE (11:06)
[2025-04-09 07:50] LABS: BLOOD UREA NITROGEN,BUN 9.0 mg/dL (7-18); CARBON DIOXIDE,CO2 30.6 mmol/L (21.0-32.0); CHLORIDE,CL 105.0 mmol/L (98-107); CREATININE 1.08 mg/dL (0.51-1.17); EST CRCL DRUG DOSING (CG) 54.57 mL/min; GLUCOSE RANDOM 101.0 mg/dL (70-99); POTASSIUM,K 3.2 mmol/L (3.5-5.1); SODIUM,NA 143.0 mmol/L (136-145)
[2025-04-09 07:51] LABS: ESTIMATED GFR 73.0 mL/min (>=60)
[2025-04-09] MEDS: Potassium Chloride 10 MEQ Tab.ER PO SCH (10:34)
[2025-04-09 11:59] VITALS: BP 131/86; PULSE 76
[2025-04-10] MEDS ORDERED: Potassium Chloride 10 MEQ Tab.ER PO SCH (08:00)
== END 2025-04-09 13:18 | disposition home or self-care (01) | DRG 871 ==
LOC: LL.ED 18:00 → LL.MS 20:49
PROVIDERS: ADMIT Family Medicine; ATTEND Family Medicine
DX: E11.65 Type 2 diabetes mellitus with hyperglycemia (principal); N39.0 Urinary tract infection, site not specified; A41.9 Sepsis, unspecified organism; E11.641 Type 2 diabetes mellitus with hypoglycemia with coma; N30.01 Acute cystitis with hematuria; E11.40 Type 2 diabetes mellitus with diabetic neuropathy, unspecified; I42.9 Cardiomyopathy, unspecified; I25.10 Atherosclerotic heart disease of native coronary artery without angina pectoris; E66.9 Obesity, unspecified; E86.0 Dehydration; E11.22 Type 2 diabetes mellitus with diabetic chronic kidney disease; N18.9 Chronic kidney disease, unspecified; E87.6 Hypokalemia; E83.42 Hypomagnesemia; E78.00 Pure hypercholesterolemia, unspecified; M19.90 Unspecified osteoarthritis, unspecified site; E11.42 Type 2 diabetes mellitus with diabetic polyneuropathy; F32.A Depression, unspecified; Z96.649 Presence of unspecified artificial hip joint; Z96.659 Presence of unspecified artificial knee joint; I12.9 Hypertensive chronic kidney disease with stage 1 through stage 4 chronic kidney disease, or unspecified chronic kidney disease; Z68.25 Body mass index [BMI] 25.0-25.9, adult; Z79.4 Long term (current) use of insulin; Z79.2 Long term (current) use of antibiotics; Z98.890 Other specified postprocedural states; Z79.899 Other long term (current) drug therapy; Z95.5 Presence of coronary angioplasty implant and graft; I25.2 Old myocardial infarction; Z88.0 Allergy status to penicillin; Z88.8 Allergy status to other drugs, medicaments and biological substances; Z79.1 Long term (current) use of non-steroidal anti-inflammatories (NSAID)
CPT/HCPCS: 36415; 51798; 70450; 71045; 73620-RT; 80048; 80053; 80305-QW; 80307; 81001; 82140; 82550; 82947; 83036; 83605; 83735; 83880; 84484; 85025; 85027; 85610; 85730; 86140; 87040; 87086; 87088; 87186; 93005; 93971; 97161-GP; 99223-GT; 99232-GT; 99233-GT; 99239-GT; 99284; A6212; A9270-GY; C1889; J0696; J1650; J1938; J3475; J7042; J7120; Q3014